=== PATIENT | male | born 1955 | race Asian ===

== ENCOUNTER 2023-07-29 06:41 | Inpatient (IN) | payer MEDICARE ==
[2023-07-29 07:08] LABS: HEMATOCRIT 39.1 % (38.3-50.1); HEMOGLOBIN 13.2 g/dL (12.9-17.7); MEAN CORPUSCULAR HEMOGLOBIN 30.2 pg (27.0-33.3); MEAN CORPUSCULAR HGB CONC 33.7 g/dL (28.7-35.3); MEAN CORPUSCULAR VOLUME 89.6 fL (80.8-98.7); MEAN PLATELET VOLUME 6.8 fL (6.7-11.0); PLATELET COUNT,PLT 218 x10(3)uL (117-477); RED BLOOD CELL COUNT 4.37 x10(6)uL (3.90-5.90); RED CELL DISTRIBUTION WIDTH 12.8 % (12.4-15.0); WHITE BLOOD CELL COUNT,WBC 13.1 x10-3/uL (3.2-10.1)
[2023-07-29 07:15] LABS: BLOOD UREA NITROGEN,BUN 17 mg/dL (7-18); BUN/CREATININE RATIO 18.9 (9-20); CALCIUM 9.4 mg/dL (8.6-10.2); CARBON DIOXIDE,CO2 31 mmol/L (21-32); CHLORIDE,CL 102 mmol/L (100-110); CREATININE 0.9 mg/dL (0.70-1.30); ESTIMATED GFR 93 mL/min (>60); GLUCOSE RANDOM 137 mg/dL (80-116); POTASSIUM,K 3.7 mmol/L (3.5-5.3); SODIUM,NA 142 mmol/L (135-145)
[2023-07-29 07:26] LABS: ALANINE AMINOTRANSFERASE,ALT 42 U/L (12-36); ALBUMIN 3.9 g/dL (3.2-4.6); ALKALINE PHOSPHATASE 90 IU/L (56-112); BILIRUBIN TOTAL 1.2 mg/dL (0.1-1.3); PROTEIN TOTAL,TP 7.9 g/dL (6.0-8.0)
[2023-07-29 07:27] LABS: BAND PERCENT MAN 1 % (0-6); LYMPHOCYTES PERCENT MAN 5 % (13-37); MONOCYTES PERCENT MAN 6 % (4-12); SEG NEUTROPHILS PERCENT MAN 88 % (46-82)
[2023-07-29 07:36] LABS: ASPARTATE AMNIOTRANSFERASE,AST 197 IU/L (5-25)
[2023-07-29] MEDS: Sodium Chloride 0.9% 1,000 ML IV ONE ×2 (07:47→09:39)
[2023-07-29 08:20] LABS: INFLUENZA A NAA NEGATIVE (NEGATIVE); INFLUENZA B NAA NEGATIVE (NEGATIVE); RESPIRATORY SYNCYTIAL VIR NAA NEGATIVE (NEGATIVE)
[2023-07-29 08:21] LABS: CORONAVIRUS COVID-19 NAA NEGATIVE (NEGATIVE)
[2023-07-29 08:42] LABS: CREATINE KINASE,CK 14132 IU/L (60-160)
[2023-07-29] MEDS ORDERED: Iopamidol 755 Mg/ML 100 ML Bottle IV SCH (09:15)
[2023-07-29 09:43] LABS: BILIRUBIN,URINE NEGATIVE (NEGATIVE); GLUCOSE,URINE NORMAL (NORMAL); KETONES,URINE 15 mg/dL (NEGATIVE); LEUKOCYTE ESTERASE,URINE NEGATIVE (NEGATIVE); NITRITE,URINE NEGATIVE (NEGATIVE); OCCULT BLOOD,URINE TRACE (NEGATIVE); PROTEIN,URINE TRACE mg/dL (NEGATIVE); UROBILINOGEN,URINE NORMAL (NEGATIVE)
[2023-07-29 09:52] LABS: APPEARANCE,URINE CLEAR (CLEAR); BACTERIA,URINE FEW (NS); COLOR,URINE YELLOW (YELLOW); RBC,URINE 0-5 (0-5); SQUAMOUS EPITHELIAL CELLS,UR FEW (NS,R,O); WBC,URINE 0-5 (0-5)
[2023-07-29 09:53] LABS: AMPHETAMINES SCREEN, URINE NEGATIVE (NEGATIVE); BARBITURATE SCREEN,URINE NEGATIVE (NEGATIVE); BENZODIAZEPINES SCREEN,URINE NEGATIVE (NEGATIVE); METHADONE SCREEN, URINE NEGATIVE (NEGATIVE); METHAMPHETAMINE SCREEN, URINE NEGATIVE (NEGATIVE); OXYCODONE SCREEN,URINE NEGATIVE (NEGATIVE); THC SCREEN,URINE NEGATIVE (NEGATIVE)
[2023-07-29 09:54] LABS: BUPRENORPHINE SCREEN,URINE NEGATIVE (NEGATIVE)
[2023-07-29] MEDS: Lidocaine 2% HCl 6 ML Jel MM STA (09:59)
[2023-07-29] MEDS ORDERED: Ondansetron 4 MG/2 ML SDV IV PRN (10:55)
[2023-07-29] MEDS ORDERED: Albuterol 0.083% 2.5 MG/3 ML Neb Soln NEB PRN (10:55)
[2023-07-29] MEDS ORDERED: Sennosides/Docusate Sodium 50-8.6 MG Tab PO PRN (10:55)
[2023-07-29] MEDS: Sodium Chloride 0.9% 1,000 ML IV SCH (11:32)
[2023-07-29] MEDS: methylPREDNISolone Sodium Succinate 125 MG/2 ML SDV IVPUSH SCH (11:32)
[2023-07-29] MEDS: Piperacillin/Tazobactam 4.5 GM in Sodium Chloride 0.9% 100 ML IV ONE ×2 (11:40→13:25)
[2023-07-29] MEDS: Enoxaparin 30 MG/0.3 ML Syringe SUBCUT SCH (11:48)
[2023-07-29 11:50] LABS: LACTIC ACID 0.9 mmol/L (0.4-2.0)
[2023-07-29] MEDS ORDERED: Acetaminophen 500 MG Tab PO PRN (17:13)
[2023-07-29] MEDS: Piperacillin/Tazobactam 4.5 GM in Sodium Chloride 0.9% 100 ML IV SCH (19:59)
[2023-07-29] MEDS: VITAMIN E 200 UNIT PO SCH (21:42)
[2023-07-29] MEDS: Cholecalciferol (Vitamin D3) 25 MCG Tab PO SCH (21:42)
[2023-07-29] MEDS: Zolpidem 5 MG Tab PO SCH (21:47)
[2023-07-30 06:45] LABS: HEMATOCRIT 36.8 % (38.3-50.1); HEMOGLOBIN 12.4 g/dL (12.9-17.7); MEAN CORPUSCULAR HGB CONC 33.6 g/dL (28.7-35.3); MEAN CORPUSCULAR VOLUME 89.1 fL (80.8-98.7); MEAN PLATELET VOLUME 6.8 fL (6.7-11.0); PLATELET COUNT,PLT 206 x10(3)uL (117-477); RED BLOOD CELL COUNT 4.13 x10(6)uL (3.90-5.90); WHITE BLOOD CELL COUNT,WBC 11.4 x10-3/uL (3.2-10.1)
[2023-07-30 07:01] LABS: A/G RATIO 0.8; ALANINE AMINOTRANSFERASE,ALT 40 U/L (12-36); ALBUMIN 2.8 g/dL (3.2-4.6); ALKALINE PHOSPHATASE 66 IU/L (56-112); ASPARTATE AMNIOTRANSFERASE,AST 101 IU/L (5-25); BILIRUBIN TOTAL 0.7 mg/dL (0.1-1.3); BLOOD UREA NITROGEN,BUN 11 mg/dL (7-18); BUN/CREATININE RATIO 15.7 (9-20); CARBON DIOXIDE,CO2 28 mmol/L (21-32); CHLORIDE,CL 112 mmol/L (100-110); CREATININE 0.7 mg/dL (0.70-1.30); EST CRCL DRUG DOSING (CG) 56.63 mL/min; ESTIMATED GFR 100 mL/min (>60); GLUCOSE RANDOM 142 mg/dL (80-116); POTASSIUM,K 3.6 mmol/L (3.5-5.3); PROTEIN TOTAL,TP 6.3 g/dL (6.0-8.0); SODIUM,NA 147 mmol/L (135-145)
[2023-07-30 07:02] LABS: LYMPHOCYTES PERCENT MAN 4 % (13-37); MONOCYTES PERCENT MAN 3 % (4-12); SEG NEUTROPHILS PERCENT MAN 93 % (46-82)
[2023-07-30 07:41] LABS: CREATINE KINASE,CK 6856 IU/L (60-160)
[2023-07-30] MEDS: Aspirin 81 MG Tab.EC PO SCH (09:22)
[2023-07-30] MEDS: Sennosides/Docusate Sodium 50-8.6 MG Tab PO SCH (09:22)
[2023-07-30] MEDS ORDERED: Melatonin 3 MG Tab PO PRN (12:17)
[2023-07-30] MEDS ORDERED: Ibuprofen 200 MG Tab PO PRN (13:01)
[2023-07-30 16:55] LABS: BLOOD UREA NITROGEN,BUN 16 mg/dL (7-18); CALCIUM 8.1 mg/dL (8.6-10.2); CARBON DIOXIDE,CO2 25 mmol/L (21-32); CHLORIDE,CL 113 mmol/L (100-110); CREATININE 0.8 mg/dL (0.70-1.30); EST CRCL DRUG DOSING (CG) 49.55 mL/min; ESTIMATED GFR 96 mL/min (>60); GLUCOSE RANDOM 156 mg/dL (80-116); POTASSIUM,K 3.5 mmol/L (3.5-5.3); SODIUM,NA 148 mmol/L (135-145)
[2023-07-30] MEDS: Lactated Ringers 1,000 ML IV SCH (18:24)
[2023-07-30] MEDS: Sodium Chloride 0.9% 10 ML Syringe FLUSH PRN (20:30)
[2023-07-31 06:37] LABS: HEMOGLOBIN 10.8 g/dL (12.9-17.7); MEAN CORPUSCULAR HGB CONC 33.8 g/dL (28.7-35.3); MEAN CORPUSCULAR VOLUME 88.8 fL (80.8-98.7); PLATELET COUNT,PLT 231 x10(3)uL (117-477); WHITE BLOOD CELL COUNT,WBC 14.1 x10-3/uL (3.2-10.1)
[2023-07-31 06:46] LABS: A/G RATIO 0.8; ALANINE AMINOTRANSFERASE,ALT 33 U/L (12-36); ALBUMIN 2.6 g/dL (3.2-4.6); ALKALINE PHOSPHATASE 62 IU/L (56-112); ASPARTATE AMNIOTRANSFERASE,AST 60 IU/L (5-25); BILIRUBIN TOTAL 0.6 mg/dL (0.1-1.3); BLOOD UREA NITROGEN,BUN 14 mg/dL (7-18); CALCIUM 8.5 mg/dL (8.6-10.2); CARBON DIOXIDE,CO2 29 mmol/L (21-32); CHLORIDE,CL 112 mmol/L (100-110); CREATININE 0.7 mg/dL (0.70-1.30); EST CRCL DRUG DOSING (CG) 58.38 mL/min; ESTIMATED GFR 100 mL/min (>60); GLUCOSE RANDOM 113 mg/dL (80-116); POTASSIUM,K 3.2 mmol/L (3.5-5.3); PROTEIN TOTAL,TP 5.7 g/dL (6.0-8.0); SODIUM,NA 148 mmol/L (135-145)
[2023-07-31 06:55] LABS: LYMPHOCYTES PERCENT MAN 7 % (13-37); MONOCYTES PERCENT MAN 4 % (4-12); SEG NEUTROPHILS PERCENT MAN 89 % (46-82)
[2023-07-31] MEDS: Potassium Chloride 20 MEQ Tab.ER PO ONE (09:41)
[2023-07-31] MEDS: Piperacillin/Tazobactam 4.5 GM in Sodium Chloride 0.9% 100 ML IV SCH ×2 (09:45→13:58)
[2023-08-01 06:45] LABS: BASOPHILS PERCENT AUTO 0.5 % (0.3-3.8); HEMATOCRIT 35.8 % (38.3-50.1); HEMOGLOBIN 12.2 g/dL (12.9-17.7); LYMPHOCYTES ABSOLUTE AUTO 0.9 x10-3/uL (0.5-4.5); LYMPHOCYTES PERCENT AUTO 9.8 % (15.8-45.3); MEAN CORPUSCULAR HEMOGLOBIN 30.2 pg (27.0-33.3); MEAN CORPUSCULAR VOLUME 88.9 fL (80.8-98.7); MEAN PLATELET VOLUME 6.6 fL (6.7-11.0); MONOCYTES ABSOLUTE AUTO 0.6 x10-3/uL (0.0-1.2); NEUTROPHILS ABSOLUTE AUTO 7.5 x10-3/uL (1.7-6.9); NEUTROPHILS PERCENT AUTO 82.7 % (40.3-71.8); PLATELET COUNT,PLT 245 x10(3)uL (117-477); RED BLOOD CELL COUNT 4.03 x10(6)uL (3.90-5.90); RED CELL DISTRIBUTION WIDTH 12.9 % (12.4-15.0); WHITE BLOOD CELL COUNT,WBC 9.1 x10-3/uL (3.2-10.1)
[2023-08-01 06:52] LABS: BLOOD UREA NITROGEN,BUN 9 mg/dL (7-18); BUN/CREATININE RATIO 12.9 (9-20); CARBON DIOXIDE,CO2 31 mmol/L (21-32); CHLORIDE,CL 108 mmol/L (100-110); CREATININE 0.7 mg/dL (0.70-1.30); EST CRCL DRUG DOSING (CG) 64.47 mL/min; ESTIMATED GFR 100 mL/min (>60); GLUCOSE RANDOM 96 mg/dL (80-116); POTASSIUM,K 3.1 mmol/L (3.5-5.3); SODIUM,NA 147 mmol/L (135-145)
[2023-08-01] MEDS: Potassium Chloride 20 MEQ Tab.ER PO ONE (09:25)
[2023-08-01] MEDS: guaiFENesin 600 MG Tab.ER PO ONE (10:29)
[2023-08-01] MEDS: Potassium Chloride 20 MEQ Tab.ER PO STA (14:06)
[2023-08-02 06:54] LABS: BLOOD UREA NITROGEN,BUN 9 mg/dL (7-18); BUN/CREATININE RATIO 11.3 (9-20); CALCIUM 8.5 mg/dL (8.6-10.2); CARBON DIOXIDE,CO2 30 mmol/L (21-32); CHLORIDE,CL 106 mmol/L (100-110); CREATININE 0.8 mg/dL (0.70-1.30); ESTIMATED GFR 96 mL/min (>60); GLUCOSE RANDOM 101 mg/dL (80-116); POTASSIUM,K 3.6 mmol/L (3.5-5.3); SODIUM,NA 143 mmol/L (135-145)
== END 2023-08-02 16:05 | disposition home health service (06) | DRG 183 ==
LOC: FB.ED 06:41 → FB.MS 11:37
PROVIDERS: ADMIT Family Medicine; ATTEND Internal Medicine
DX: J18.9 Pneumonia, unspecified organism (principal); M62.82 Rhabdomyolysis; S22.41XA Multiple fractures of ribs, right side, initial encounter for closed fracture; J69.0 Pneumonitis due to inhalation of food and vomit; Z68.1 Body mass index [BMI] 19.9 or less, adult; T79.6XXA Traumatic ischemia of muscle, initial encounter; I10 Essential (primary) hypertension; Z66 Do not resuscitate; E78.00 Pure hypercholesterolemia, unspecified; F20.9 Schizophrenia, unspecified; J43.2 Centrilobular emphysema; R62.7 Adult failure to thrive; R29.6 Repeated falls; W18.30XA Fall on same level, unspecified, initial encounter; J44.9 Chronic obstructive pulmonary disease, unspecified; E86.0 Dehydration; E87.6 Hypokalemia; Z79.82 Long term (current) use of aspirin; Z79.899 Other long term (current) drug therapy; Z87.891 Personal history of nicotine dependence
CPT/HCPCS: 0241U; 36415; 71045; 71260; 80048; 80053; 80307; 81001; 82550; 83605; 83735; 84132; 84484; 85025; 87040; 92610-GN; 93005; 93010; 94150; 96360; 96361; 97161-GP; 97530-GP; 99223; 99233; 99238; 99285; 99285-25; A9270-GY; J1650; J2543; J2930; J3490; J7030; J7120

== ENCOUNTER 2024-03-31 10:28 | Emergency (ER) | payer MEDICARE, OTHER ==
[2024-03-31] MEDS: traMADol 50 MG Tab PO ONE (11:13)
[2024-03-31 11:20] LABS: APPEARANCE,URINE CLEAR (CLEAR); BILIRUBIN,URINE NEGATIVE (NEGATIVE); COLOR,URINE YELLOW (YELLOW); GLUCOSE,URINE NORMAL (NORMAL); KETONES,URINE 15 mg/dL (NEGATIVE); LEUKOCYTE ESTERASE,URINE NEGATIVE (NEGATIVE); NITRITE,URINE NEGATIVE (NEGATIVE); OCCULT BLOOD,URINE LARGE (NEGATIVE); PROTEIN,URINE TRACE mg/dL (NEGATIVE); UROBILINOGEN,URINE NORMAL (NEGATIVE)
[2024-03-31 11:23] LABS: BACTERIA,URINE FEW (NS); HYALINE CASTS,URINE FEW (NS); SQUAMOUS EPITHELIAL CELLS,UR FEW (NS,R,O); WBC,URINE 0-5 (0-5)
[2024-03-31 11:28] LABS: HEMATOCRIT 38.1 % (38.3-50.1); HEMOGLOBIN 13.1 g/dL (12.9-17.7); MEAN CORPUSCULAR HEMOGLOBIN 29.8 pg (27.0-33.3); MEAN CORPUSCULAR HGB CONC 34.4 g/dL (28.7-35.3); MEAN CORPUSCULAR VOLUME 86.7 fL (80.8-98.7); MEAN PLATELET VOLUME 7.1 fL (6.7-11.0); PLATELET COUNT,PLT 187 x10(3)uL (117-477); RED BLOOD CELL COUNT 4.39 x10(6)uL (3.90-5.90); RED CELL DISTRIBUTION WIDTH 13.9 % (12.4-15.0); WHITE BLOOD CELL COUNT,WBC 9.3 x10-3/uL (3.2-10.1)
[2024-03-31 11:30] LABS: BLOOD UREA NITROGEN,BUN 18 mg/dL (7-18); BUN/CREATININE RATIO 16.4 (9-20); CALCIUM 8.6 mg/dL (8.6-10.2); CARBON DIOXIDE,CO2 28 mmol/L (21-32); CHLORIDE,CL 105 mmol/L (100-110); CREATININE 1.1 mg/dL (0.70-1.30); EST CRCL DRUG DOSING (CG) 39.85 mL/min; ESTIMATED GFR 73 mL/min (>60); GLUCOSE RANDOM 99 mg/dL (80-116); POTASSIUM,K 4.1 mmol/L (3.5-5.3); SODIUM,NA 142 mmol/L (135-145)
[2024-03-31 11:40] LABS: A/G RATIO 1.3; ALANINE AMINOTRANSFERASE,ALT 58 U/L (12-36); ALBUMIN 3.7 g/dL (3.2-4.6); ALKALINE PHOSPHATASE 73 IU/L (56-112); BILIRUBIN TOTAL 0.4 mg/dL (0.1-1.3); PROTEIN TOTAL,TP 6.5 g/dL (6.0-8.0)
[2024-03-31 11:41] LABS: LYMPHOCYTES PERCENT MAN 6 % (13-37); MONOCYTES PERCENT MAN 8 % (4-12); SEG NEUTROPHILS PERCENT MAN 86 % (46-82)
[2024-03-31 11:42] LABS: ASPARTATE AMNIOTRANSFERASE,AST 303 IU/L (5-25)
== END 2024-03-31 13:55 | disposition home or self-care (01) ==
LOC: FB.ED 10:28
DX: S00.83XA Contusion of other part of head, initial encounter (principal); S20.221A Contusion of right back wall of thorax, initial encounter; R94.5 Abnormal results of liver function studies; R31.29 Other microscopic hematuria; J44.9 Chronic obstructive pulmonary disease, unspecified; F17.200 Nicotine dependence, unspecified, uncomplicated; Z79.82 Long term (current) use of aspirin; Z79.899 Other long term (current) drug therapy; W01.0XXA Fall on same level from slipping, tripping and stumbling without subsequent striking against object, initial encounter
CPT/HCPCS: 36415; 72131; 74176; 80053; 81001; 83690; 83735; 85025; 99284; A9270